=== PATIENT | female | born 1990 | race American Indian/Alaskan Native ===

== ENCOUNTER 2018-01-01 19:44 | Emergency (ER) | payer MEDICAID ==
[2018-01-01 20:13] VITALS: BP 118/89
--- NOTE | 2018-01-01 23:23 | Emergency Department Report ---
[facility] Chief Complaint: Eye Problems Stated Complaint: RT EYE PAIN Time Seen by Provider: 01/01/18 23:18 Duration: Today Side: Right Severity: moderate Symptoms: Yes Eye Itching, Yes Eye Redness, Yes Mucous Drainage, Yes Purulent Drainage, No Eye Pain, No Blurred Vision, No Preceding URI, No H/O Allergic Rhinitis, No Contact Lens Use, No Trauma, No Fever, No Headache Other History: 27-year-old -[place] female comes in complaining of right eye redness with drainage that she woke up this morning too. Patient reports that is very itchy drainage of yellowish mucousy discharge she says her eyelashes were matted this morning.patient denies any past medical history currently takes no medications and has no known drug allergies. Patient reports that she is breast-feeding and bottlefeeding. ED Review of Systems ROS: Stated complaint: RT EYE PAIN Other details as noted in HPI Constitutional: denies: chills, fever Eyes: eye discharge (right eye), other (right eye itchiness and redness) ENT: denies: ear pain, throat pain Respiratory: denies: cough, shortness of breath, wheezing Cardiovascular: denies: chest pain, palpitations Endocrine: no symptoms reported Gastrointestinal: denies: abdominal pain, nausea, diarrhea Genitourinary: denies: urgency, dysuria, discharge Musculoskeletal: denies: back pain, joint swelling, arthralgia Skin: denies: rash, lesions Neurological: denies: headache, weakness, paresthesias Psychiatric: denies: anxiety, depression Hematological/Lymphatic: denies: easy bleeding, easy bruising ED Past Medical Hx - Past Medical History Previous Medical History?: No - Surgical History Past Surgical History?: Yes Additional Surgical History: x1. myomectomy - Social History Smoking Status: Never Smoker Substance Use Type: None - Medications Home Medications: Home Medications Medication Instructions Recorded Confirmed Last Taken Type Erythromycin [Erythromycin Ophth 1 applic OP QID #1 tube 01/01/18 Unknown Rx Oint] [facility] Exam - Exam General: Vital signs noted. No distress. Alert and acting appropriately. Eye Exam: Right Injection, Right Mucous Discharge, Right Purulent Discharge, Both EOMI, Neither Chemosis, Neither Abnormal Pupil, Neither Eye Foreign Body, Neither Lid Foreign Body, Neither Corneal Edema, Neither Photophobia HEENT: No Nasal Congestion, No Pharyngeal Erythema Remainder of HEENT: Normal ED Course Vital Signs 01/01/18 20:10 Temperature 98.9 F Pulse Rate 85 Respiratory 17 Rate Blood Pressure 118/89 O2 Sat by Pulse 99 Oximetry Critical care attestation.: If time is entered above; I have spent that time in minutes in the direct care of this critically ill patient, excluding procedure time. ED Disposition Clinical Impression: Conjunctivitis Qualifiers: Conjunctivitis type: acute Acute conjunctivitis type: unspecified Laterality: right Qualified Code(s): H10.31 - Unspecified acute conjunctivitis, right eye Disposition: DC-01 TO HOME OR SELFCARE Is pt being admited?: No Does the pt Need Aspirin: No Condition: Stable Instructions: Conjunctivitis (ED) Additional Instructions: Please use eye ointment as prescribed. Follow-up with her primary care provider if symptoms persist or gets worse. Prescriptions: Erythromycin [Erythromycin Ophth Oint] 1 applic OP QID #1 tube Referrals: PRIMARY CARE, [Primary Care Provider] - 3-5 Days
== END 2018-01-01 23:29 | disposition home or self-care (01) ==
LOC: ED 19:44
DX: H10.31 Unspecified acute conjunctivitis, right eye (principal)
CPT/HCPCS: 99282

== ENCOUNTER 2021-08-22 11:58 | Emergency (ER) | payer MEDICAID ==
--- NOTE | 2021-08-22 13:34 | XRay Report ---
CHEST 2 VIEWS INDICATION / CLINICAL INFORMATION: cough. Sore throat x2 days. COMPARISON: None available. FINDINGS: SUPPORT DEVICES: None. HEART / MEDIASTINUM: No significant abnormality. LUNGS / PLEURA: No significant pulmonary or pleural abnormality. No pneumothorax. ADDITIONAL FINDINGS: No significant additional findings. IMPRESSION: 1. No acute findings. Signer Name: Regina Webb MD Signed: 08/22/2021 1:30 PM Workstation Name: [id number]
--- NOTE | 2021-08-22 13:44 | Emergency Department Report ---
ED General Adult HPI - General Chief complaint: Upper Respiratory Infection Stated complaint: COLD/CHEST PAIN Time Seen by Provider: 08/22/21 12:47 Source: patient Mode of arrival: Ambulatory Limitations: No Limitations - History of Present Illness Initial comments: 31-year-old -[place] female patient presents with complaints of sore throat, cough, and congestion x1 week. She denies any loss of taste or smell. She states she is vaccinated against COVID-19. She admits to chest pain with coughing only and denies any hemoptysis. No nausea/vomiting/diarrhea or fever per patient. Patient also states she is having some shortness of breath. -: Sudden - Related Data Previous Rx's Medication Instructions Recorded Last Taken Type Erythromycin [Erythromycin Ophth 1 applic OP QID #1 tube 01/01/18 Unknown Rx Oint] Azithromycin [Zithromax Z-RADHA] 0 mg PO DAILY #6 tab 08/22/21 Unknown Rx Benzonatate 200 mg PO TID PRN #30 capsule 08/22/21 Unknown Rx Prednisone [predniSONE 10 mg 10 mg PO .TAPER #1 tab.ds.pk 08/22/21 Unknown Rx (6-Day Pack, 21 Tabs)] guaiFENesin [Guaifenesin ER] 1,200 mg PO BID #14 tab.er.12h 08/22/21 Unknown Rx Allergies Allergy/AdvReac Type Severity Reaction Status Date / Time strawberry AdvReac Hives Verified 08/22/21 12:03 ED Review of Systems ROS: Stated complaint: COLD/CHEST PAIN Other details as noted in HPI Constitutional: denies: diaphoresis, fever, malaise ENT: throat pain Respiratory: see HPI, cough Cardiovascular: as per HPI Gastrointestinal: denies: abdominal pain, nausea, vomiting Skin: denies: rash, change in color Neurological: denies: headache Hematological/Lymphatic: denies: swollen glands ED Past Medical Hx - Surgical History Additional Surgical History: x1. myomectomy - Social History Smoking Status: Never Smoker Substance Use Type: None - Medications Home Medications: Home Medications Medication Instructions Recorded Confirmed Last Taken Type Erythromycin [Erythromycin Ophth 1 applic OP QID #1 tube 01/01/18 Unknown Rx Oint] Azithromycin [Zithromax Z-RADHA] 0 mg PO DAILY #6 tab 08/22/21 Unknown Rx Benzonatate 200 mg PO TID PRN #30 capsule 08/22/21 Unknown Rx Prednisone [predniSONE 10 mg 10 mg PO .TAPER #1 tab.ds.pk 08/22/21 Unknown Rx (6-Day Pack, 21 Tabs)] guaiFENesin [Guaifenesin ER] 1,200 mg PO BID #14 tab.er.12h 08/22/21 Unknown Rx ED Physical Exam - General Limitations: No Limitations General appearance: alert, in no apparent distress - Head Head exam: Present: atraumatic, normocephalic - Eye Eye exam: Present: normal appearance. Absent: scleral icterus - Expanded ENT Exam Expanded Mouth exam: Absent: drooling, trismus, muffled voice Throat exam: Positive: tonsillar erythema (Bilateral), tonsillomegaly (Bilateral), other (Uvula is midline). Negative: tonsillar exudate, R peritonsillar mass, L peritonsillar mass - Neck Neck exam: Present: full ROM. Absent: lymphadenopathy - Respiratory Respiratory exam: Present: rhonchi (Diffuse). Absent: respiratory distress, wheezes, rales, accessory muscle use - Cardiovascular Cardiovascular Exam: Present: regular rate, normal rhythm - Neurological Exam Neurological exam: Present: alert, oriented X3 - Psychiatric Psychiatric exam: Present: normal affect, normal mood - Skin Skin exam: Present: warm, dry, intact, normal color. Absent: rash ED Course Vital Signs 08/22/21 12:02 Temperature 98.4 F Pulse Rate 82 Respiratory 14 Rate Blood Pressure 123/92 [Left] O2 Sat by Pulse 100 Oximetry ED Medical Decision Making - Radiology Data Radiology results: report reviewed CHEST 2 VIEWS INDICATION / CLINICAL INFORMATION: cough. Sore throat x2 days. COMPARISON: None available. FINDINGS: SUPPORT DEVICES: None. HEART / MEDIASTINUM: No significant abnormality. LUNGS / PLEURA: No significant pulmonary or pleural abnormality. No pneumothorax. ADDITIONAL FINDINGS: No significant additional findings. IMPRESSION: 1. No acute findings. - Medical Decision Making 31-year-old -[place] female patient presents with complaints of sore throat, cough, and congestion x1 week. She denies any loss of taste or smell. She states she is vaccinated against COVID-19. She admits to chest pain with coughing only and denies any hemoptysis. No nausea/vomiting/diarrhea or fever per patient. Patient also states she is having some shortness of breath. Rhonchi noted on exam. Chest x-ray is normal. Rapid strep is negative. Given duration of symptoms and that they are worsening instead of improving, will treat for acute bacterial bronchitis with Z-Radha and supportive treatment. Recommend outpatient testing for COVID-19 and self quarantine until results are back. She is otherwise well-appearing, her vitals are within normal limits, she is stable for discharge home. Patient to follow-up with primary care in 3 to 5 days. Strict return precautions discussed in great detail with patient who verbalizes understanding Critical care attestation.: If time is entered above; I have spent that time in minutes in the direct care of this critically ill patient, excluding procedure time. ED Disposition Clinical Impression: Acute bacterial bronchitis Disposition: 01 HOME / SELF CARE / HOMELESS Is pt being admited?: No Condition: Stable Instructions: Acute Bronchitis (ED), Acute Bronchitis, Adult Prescriptions: Benzonatate 200 mg PO TID PRN #30 capsule PRN Reason: Cough guaiFENesin [Guaifenesin ER] 1,200 mg PO BID #14 tab.er.12h Prednisone [predniSONE 10 mg (6-Day Pack, 21 Tabs)] 10 mg PO .TAPER #1 tab.ds.pk Azithromycin [Zithromax Z-RADHA] 0 mg PO DAILY #6 tab [facility]errals: [facility] [Primary [facility] Provider] - 3-5 Days Forms: Work/School Release Form(ED)
[2021-08-22 15:57] VITALS: BP 126/80
== END 2021-08-22 16:05 | disposition home or self-care (01) ==
LOC: ED 11:58
DX: J20.8 Acute bronchitis due to other specified organisms (principal); B96.89 Other specified bacterial agents as the cause of diseases classified elsewhere; Z98.890 Other specified postprocedural states; Z91.018 Allergy to other foods; Z79.899 Other long term (current) drug therapy
CPT/HCPCS: 71046; 87116; 87430; 99283